=== PATIENT | female | born 1985 | race Caucasian/White ===

== ENCOUNTER → 2019-01-31 | Outpatient (CLI) | payer BC ==
--- NOTE | 2019-01-31 14:41 | US ---
EXAMINATION TYPE: US thyroid st tissue head/neck DATE OF EXAM: 01/31/2019 COMPARISON: 05/06/2015 CLINICAL HISTORY: E04.9 Enlarged thyroid. GLAND SIZE: Right Lobe: 7.0 x 1.7 x 2.2 cm Overall Parenchyma: homogenous Left Lobe: 6.1 x 1.3 x 1.9 cm Overall Parenchyma: homogeneous Isthmus Thickness: 0.4 cm NODULES RIGHT: # of nodules measured on right: 0 LEFT: # of nodules measured on left: 0 ISTHMUS: # of nodules measured in the isthmus: 0 Bilateral neck scanned, no evidence of lymphadenopathy. Enlarged thyroid. IMPRESSION: There is redemonstration of thyromegaly however the previously seen 4 mm right thyroid no dule is not redemonstrated.
== END | disposition home or self-care (01) ==
LOC: RADUSWWP 14:12
PROVIDERS: ATTEND Obstetrics & Gynecology
DX: E01.0 Iodine-deficiency related diffuse (endemic) goiter (principal)
CPT/HCPCS: 76536

== ENCOUNTER 2019-07-10 13:34 | Outpatient (CLI) | payer BC ==
[2019-07-10] MEDS ORDERED: BETAMET ACET-BETAMETH SOD PHOS 6 MG/ML VIAL IM SCH (14:00)
[2019-07-10 14:11] LABS: Basophils # (A) 0.1 k/uL (0-0.2); Basophils % (A) 1 %; Eosinophils # (A) 0.1 k/uL (0-0.7); Eosinophils % (A) 1 %; HCT 30.9 % (34.0-46.0); HGB 9.8 gm/dL (11.4-16.0); Lymphocytes # (A) 1.5 k/uL (1.0-4.8); Lymphocytes % (A) 13 %; MCH 28.3 pg (25.0-35.0); MCHC 31.9 g/dL (31.0-37.0); MCV 88.8 fL (80.0-100.0); Mean Platelet Volume 7.2; Monocytes # (A) 0.4 k/uL (0-1.0); Monocytes % (A) 4 %; Neutrophils # (A) 9.1 k/uL (1.3-7.7); Neutrophils % (A) 80 %; Platelet Count 323 k/uL (150-450); RBC 3.48 m/uL (3.80-5.40); WBC 11.4 k/uL (3.8-10.6)
[2019-07-10 14:23] LABS: Uric Acid 4.2 mg/dL (3.7-7.4)
[2019-07-10] MEDS ORDERED: LABETALOL 200 MG TAB PO STA (14:26)
[2019-07-10 14:27] LABS: Appearance,Urine Turbid (Clear); Bacteria,Urine Occasional /hpf; Bilirubin,Urine Negative (Negative); Blood,Urine Small (Negative); Color,Urine Yellow; Glucose,Urine (UA) Negative (Negative); Ketones,Urine Negative (Negative); Leukocyte Esterase,Urine Large (Negative); Nitrite,Urine Negative (Negative); PH, Urine 6.5 (5.0-8.0); Protein,Urine Trace (Negative); RBC,Urine 4 /hpf (0-5); Specific Gravity,Urine 1.016 (1.001-1.035); Squamous Epithelial Cell,Urine 53 /hpf (0-4); Urobilinogen,Urine <2.0 mg/dL (<2.0); WBC,Urine 63 /hpf (0-5)
[2019-07-10 14:40] VITALS: BP 165/98; PULSE 89; RESP 16; TEMP 98
--- NOTE | 2019-08-06 13:02 | P.MSEPDOC ---
Presenting Problems - Arrival Data Date of Arrival on Unit: 07/10/19 Time of Arrival on Unit: 13:30 Mode of Transport: Ambulatory - Complaint OB-Reason for Admission/Chief Complaint: PIH Medical History - Information : 2 Para: 1 Term: 1 : 0 Abortions: Spontaneous or Elective: 0 Number of Living Children: 1 - Gestational Age Gestational Age by JANICE (wks/days): 34 Weeks and 4 Days - History Complications: Prior Review of Systems - Review of Systems Constitutional: No problems Breast: No problems ENT: No problems Cardiovascular: No problems Respiratory: No problems Gastrointestinal: No problems Genitourinary: No problems Musculoskeletal: No problems Neurological: No problems Skin: No problems Vital Signs - Temperature Temperature: 98.0 F Temperature Source: Oral - Pulse Right Brachial Pulse Rate: 89 Pulse Assessment Method: Automatic Cuff - Respirations Respiratory Rate: 16 Oxygen Delivery Method: Room Air - Blood Pressure Right Arm Blood Pressure: 165/98 Blood Pressure Mean: 120 Blood Pressure Source: Automatic Cuff Medical Screen Scoring (Pre) - Cervical Exam Dilation: 0 cm = 0 Effacement: Exam Deferred Membranes: Intact - Uterine Contractions Frequency: N/A Duration: N/A Intensity: N/A - Maternal Vital Signs Maternal Temperature: N/A Maternal Blood Pressure: N/A Signs of Preeclampsia: N/A Maternal Respirations: N/A - Maternal Trauma Maternal Trauma: N/A - Assessment - Baby A Baseline FHR: 135 Heart Rate - NICHD Category: Category I (Normal) = 0 NST: Reactive Position: N/A Station: N/A - Total Score - Baby A Total Score - Baby A: 0 - Total Score - Baby B Total Score - Baby B: 0 - Total Score - Baby C Total Score - Baby C: 0 - Level of Risk - Baby A Level of Risk - Baby A: Low (0-5) - Level of Risk - Baby B Level of Risk - Baby B: Low (0-5) - Level of Risk - Baby C Level of Risk - Baby C: Low (0-5) Physician Notification (Pre) - Physician Notified Physician Notified Date: 07/10/19 Physician Notified Time: 14:25 New Order Received: Yes - Notification Comment Comment: to give B/P medication Medical Screen Scoring (Post) - Assessment - Baby A Heart Rate: 130 Heart Rate - NICHD Category: Category I (Normal) = 0 NST: Reactive Position: N/A - Total Score Total Score - Baby A: 0 - Post Treatment Level of Risk Post Treatment Level of Risk - Baby A: Low (0-5) Physician Notification (Post) - Physician Notified Physician Notified Date: 07/10/19 Physician Notified Time: 15:51 Spoke With: Dr. Juarez New Order Received: Yes - Notification Comment Comment: pt to start 24 hr for protein and to return to lab tomorrow. pt to f/u in office on Monday to have blood pressure rechecked. pt to go home and rest and off work this week and pt to take labetol 200mg bid as prescribed. Disposition - Disposition OB Disposition: Physician follow up in office, Discharge to home Discharge Date: 07/10/19 Discharge Time: 16:20 I agree with the RN Medical Screening Exam: Yes Risk & Benefit of care provided described in d/c instruction: Yes Diagnosis: RELATED CONDITIONS, UNSPECIFIED, THIRD TRIMESTER
== END 2019-07-10 16:20 | disposition home or self-care (01) ==
LOC: FBPOP 13:34
PROVIDERS: ATTEND Obstetrics & Gynecology
DX: O26.93 Pregnancy related conditions, unspecified, third trimester (principal); Z3A.34 34 weeks gestation of pregnancy
CPT/HCPCS: 59025; 96372; 82570; 84156; 84450; 84460; 84550; 85025; 81001; J0702; 99215

== ENCOUNTER 2019-07-11 16:30 | Outpatient (CLI) | payer BC ==
[2019-07-11] MEDS ORDERED: BETAMET ACET-BETAMETH SOD PHOS 6 MG/ML VIAL IM SCH (17:00)
[2019-07-11 18:22] LABS: Total Volume 24 Hour,Urine 2900 mls (800-1800)
[2019-07-11 18:29] LABS: Total Protein 24 Hour,Urine 319 mg/24hr (42.0-225.0)
[2019-07-11 19:00] VITALS: BP 155/88; PULSE 103; RESP 16; TEMP 97.7
--- NOTE | 2019-07-30 11:50 | P.MSEPDOC ---
Presenting Problems - Arrival Data Date of Arrival on Unit: 07/11/19 Time of Arrival on Unit: 16:30 Mode of Transport: Ambulatory - Complaint OB-Reason for Admission/Chief Complaint: PIH Comment: bp and 24 hour results Medical History - Information : 2 Para: 1 Term: 1 : 0 Abortions: Spontaneous or Elective: 0 Number of Living Children: 1 - Gestational Age Gestational Age by JANICE (wks/days): 34 Weeks and 5 Days Review of Systems - Review of Systems Constitutional: No problems Breast: No problems ENT: No problems Cardiovascular: No problems Respiratory: No problems Gastrointestinal: No problems Genitourinary: No problems Musculoskeletal: No problems Neurological: No problems Skin: No problems Vital Signs - Temperature Temperature: 97.7 F Temperature Source: Temporal Artery Scan - Pulse Right Sitting Pulse Rate: 103 Pulse Assessment Method: Automatic Cuff - Respirations Respiratory Rate: 16 Oxygen Delivery Method: Room Air - Blood Pressure Right Arm Blood Pressure: 155/88 Blood Pressure Mean: 110 Blood Pressure Source: Automatic Cuff Medical Screen Scoring (Pre) - Cervical Exam Dilation: Exam Deferred Effacement: Exam Deferred Membranes: Intact - Uterine Contractions Frequency: N/A - Maternal Vital Signs Maternal Temperature: N/A Maternal Blood Pressure: Systolic >139 = 2 Signs of Preeclampsia: N/A Maternal Respirations: N/A - Maternal Trauma Maternal Trauma: N/A - Assessment - Baby A Baseline FHR: 135 Heart Rate - NICHD Category: Category I (Normal) = 0 NST: Reactive Position: N/A Station: N/A - Total Score - Baby A Total Score - Baby A: 2 - Total Score - Baby B Total Score - Baby B: 2 - Total Score - Baby C Total Score - Baby C: 2 - Level of Risk - Baby A Level of Risk - Baby A: Low (0-5) - Level of Risk - Baby B Level of Risk - Baby B: Low (0-5) - Level of Risk - Baby C Level of Risk - Baby C: Low (0-5) Physician Notification (Pre) - Physician Notified Physician Notified Date: 07/11/19 Physician Notified Time: 18:35 New Order Received: Yes (d/c home) Disposition - Disposition OB Disposition: Discharge to home Discharge Date: 07/11/19 Discharge Time: 18:35 I agree with the RN Medical Screening Exam: Yes Risk & Benefit of care provided described in d/c instruction: Yes Diagnosis: induced hypertensio
== END 2019-07-11 18:35 | disposition home or self-care (01) ==
LOC: FBPOP 16:30
PROVIDERS: ATTEND Obstetrics & Gynecology
DX: O13.3 Gestational [pregnancy-induced] hypertension without significant proteinuria, third trimester (principal); Z3A.34 34 weeks gestation of pregnancy
CPT/HCPCS: 59025; 99215; 96372; 81050; 84156; J0702

== ENCOUNTER → 2019-07-11 | Outpatient (CLI) | payer BC ==
[2019-07-11 17:12] LABS: Total Volume 24 Hour,Urine 2900 mls (800-1800)
[2019-07-11 17:30] LABS: Creatinine 24 Hour,Urine 1438.4 mg/24hr (800.0-1800.0)
== END | disposition home or self-care (01) ==
LOC: LABWHC1 16:08
PROVIDERS: ATTEND Obstetrics & Gynecology
DX: Z53.9 Procedure and treatment not carried out, unspecified reason (principal)
CPT/HCPCS: 36415; 81050; 82575; 84156

== ENCOUNTER 2019-07-30 07:58 | Inpatient (IN) | payer BC ==
--- NOTE | 2019-07-30 08:19 | P.HPOB ---
History of Present Illness H&P Date: 07/30/19 Chief Complaint: Gestational hypertension This is a 34 year old 2 para 1001 woman with an estimated due date of 08/17/2019 based on LMP consistent with early ultrasound. She is admitted at 37 weeks gestation for repeat low transverse section. Indication for delivery is labile gestational hypertension. She had significant on hypertensive episode at approximately 34 weeks' gestation. She had on evaluation for preeclampsia which showed a borderline elevated 24 urine protein at approximately 320 mg. The rest of her laboratory data was normal. She was started on labetalol 200 mg twice a day on and was taken off of work. Her blood pressures have ranged between the 130s to 150s over 70s to 90s for the most part. She has had some higher blood pressures and has required increasing her labetalol to 3 times a day on occasion. She has not had any signs or symptoms otherwise of preeclampsia. Due to her labile blood pressures and gestational age the decision was made to proceed to delivery. She has also requested bilateral tubal ligation to be done at the time of her surgery. Obstetric history: History of previous 37 week primary low transverse section due to of Restasis descent and dilatation, induced secondary to -induced hypertension. 8 lbs. 9 oz. female . Laboratory data: Blood type A positive, antibody screen negative, rubella immune, VDRL nonreactive, hepatitis B surface antigen negative, glucose toleranc e testing within normal limits, group B strep cultures negative Review of Systems All systems: negative Past Medical History Past Medical History: Hypertension, Pneumonia Additional Past Medical History / Comment(s): induced HTN. History of Any Multi-Drug Resistant Organisms: None Reported Past Surgical History: Adenoidectomy, Section, Tonsillectomy Additional Past Surgical History / Comment(s): C-S x1. Past Anesthesia/Blood Transfusion Reactions: No Reported Reaction, Motion Sickness Past Psychological History: No Psychological Hx Reported Smoking Status: Never smoker Past Alcohol Use History: None Reported Past Drug Use History: None Reported - Past Family History Father Family Medical History: Hypertension Sister(s) History Unknown: Yes Additional Family Medical History / Comment(s): sister was born with hole in her heart, had to have surgery to repair Medications and Allergies Home Medications Medication Instructions Recorded Confirmed Type Pnv,Calcium 72/Iron/Folic Acid 1 tab PO DAILY 11/01/15 07/26/19 History [ Plus Tablet] Labetalol [Trandate] 200 mg PO BID 07/11/19 07/26/19 History Allergies Allergy/AdvReac Type Severity Reaction Status Date / Time No Known Allergies Allergy Verified 07/26/19 15:54 Exam This is a pleasant, visibly gravid female. HEENT exam is unremarkable. Her breathing is unlabored. Her heart is a regular rate and rhythm. The abdomen is gravid with fundal height approximately 40 cm. She has no abdominal pain. The uterus is soft and nontender. She has 1+ bilateral lower extremity edema and 2+ deep tendon reflexes. Assessment and Plan (1) 37 or more weeks gestation of Current Visit: Yes Status: Acute Code(s): RBU1713 - SNOMED Code(s): 54021192 (2) induced hypertension Current Visit: No Status: Acute Code(s): O13.9 - GESTATIONAL HTN W/O SIGNIFICANT PROTEINURIA, UNSP TRIMESTER SNOMED Code(s): 50665683 (3) History of Current Visit: Yes Status: Acute Code(s): Z98.891 - HISTORY OF UTERINE SCAR FROM PREVIOUS SURGERY SNOMED Code(s): 817532595 (4) Family planning Current Visit: Yes Status: Acute Code(s): Z30.09 - ENCOUNTER FOR OT GENERAL CNSL AND ADVICE ON CONTRACEPTION SNOMED Code(s): 009971312 Plan: 34-year-old 2 para 1 at 37 weeks gestation admitted for repeat low transverse section secondary to labile elevated blood pressures and mildly elevated proteinuria. She has been counseled regarding the potential risks of delivery at 37 weeks with possible on admission of infant into the special care nursery. We also reviewed the risks and benefits of repeat low transverse section versus vaginal after . She declines a trial of labor. She also has discussed contraceptive options with me in his requested bilateral tubal ligation. Risks of the procedure have been reviewed in detail with the patient and include bleeding, transfusion, infection, damage to bowel, bladder, ureters and/or other structures, possible injury, DVT and or PE.
[2019-07-30] MEDS ORDERED: LACTATED RINGERS 1,000 ML IV ONE (08:20)
[2019-07-30] MEDS ORDERED: CITRIC ACID-SODIUM CITRATE 15 ML CUP PO ONE (08:20)
[2019-07-30 08:30] LABS: Basophils % (A) 0 %; Eosinophils # (A) 0.2 k/uL (0-0.7); Eosinophils % (A) 2 %; HCT 31.6 % (34.0-46.0); Lymphocytes # (A) 1.1 k/uL (1.0-4.8); Lymphocytes % (A) 12 %; MCH 27.8 pg (25.0-35.0); MCHC 31.7 g/dL (31.0-37.0); MCV 87.7 fL (80.0-100.0); Mean Platelet Volume 7.4; Monocytes # (A) 0.4 k/uL (0-1.0); Monocytes % (A) 4 %; Neutrophils # (A) 7.3 k/uL (1.3-7.7); Neutrophils % (A) 80 %; Platelet Count 288 k/uL (150-450); RDW 15.1 % (11.5-15.5); WBC 9.2 k/uL (3.8-10.6)
[2019-07-30] MEDS ORDERED: KETOROLAC 30 MG/ML 1 ML VIAL ONE (09:51)
[2019-07-30] MEDS ORDERED: ONDANSETRON 4 MG/2 ML VIAL ONE (09:51)
[2019-07-30] MEDS ORDERED: LABETALOL 5 MG/ML VIAL MDV ONE (09:51)
[2019-07-30] MEDS ORDERED: OXYTOCIN 10 UNIT/ML 1 ML VIAL ONE (09:51)
[2019-07-30] MEDS ORDERED: MORPHINE SULFATE (PF) 0.3 MG/0.3 ML SYR ONE (09:51)
[2019-07-30] MEDS ORDERED: CELLULOSE,OXIDIZED 1 EACH EACH MISCELLANE ONE (10:30)
[2019-07-30] MEDS ORDERED: METOCLOPRAMIDE 5 MG/ML 2 ML VIAL IVP PRN (10:55)
[2019-07-30] MEDS ORDERED: HYDROcodone/APAP 5-325MG 1 EACH TAB PO PRN (10:55)
[2019-07-30] MEDS ORDERED: NALOXONE 0.4 MG/ML 1 ML VIAL IV PRN (10:55)
[2019-07-30] MEDS ORDERED: ACETAMINOPHEN TAB 325 MG TAB PO PRN (10:55)
[2019-07-30] MEDS ORDERED: diphenhydrAMINE 50 MG CAP PO PRN (10:55)
[2019-07-30] MEDS ORDERED: diphenhydrAMINE 25 MG CAP PO PRN (10:55)
[2019-07-30] MEDS ORDERED: ZOLPIDEM 5 MG TAB PO PRN (10:55)
[2019-07-30] MEDS ORDERED: ONDANSETRON 4 MG/2 ML VIAL IVP PRN (10:55)
[2019-07-30] MEDS ORDERED: diphenhydrAMINE 50 MG/ML 1 ML VIAL IVP PRN ×2 (10:55)
--- NOTE | 2019-07-30 10:55 | P.OP ---
Date of Procedure: 07/30/19 Preoperative Diagnosis: Intrauterine at 37 weeks gestation -induced hypertension, labile but pressures History of previous low transverse section Postoperative Diagnosis: Same Procedure(s) Performed: Repeat low transverse section Anesthesia: spinal Surgeon: Dennise Juarez Unit Nurse #1: Jerel Boyer Estimated Blood Loss (ml): 700 IV fluids (ml): 1,000 Urine output (ml): 1,100 Pathology: none sent Condition: stable Disposition: PACU Indications for Procedure: Increasingly labile blood pressures near term. Operative Findings: Male infant in the vertex presentation with nuchal cord 2. Apgars of 9 at 1 minute and 9 at 5 minutes weighing 7 lbs. 2 oz., 3230 g. Intact three-vessel cord placenta. Scarring of the uterus to the anterior abdominal wall. Description of Procedure: After the patient was met preoperatively and all questions were answered, she was taken to the operating room where spinal anesthetic was administered without incident. She was then positioned, prepped and draped in the dorsal supine position with a leftward tilt. Mclean catheter was placed. After anesthetic was confirmed adequate, a low transverse skin incision was made following the pre- existing scar. This was carried down to the underlying fascia both sharply and with the electrocautery. The fascia was then incised in the midline and extended bilaterally with the Cedeno scissors. The superior aspect of the fascial incision was elevated and the underlying rectus muscles dissected off sharply and with the electrocautery. The inferior aspect of the fascial incision was also elevated and the underlying rectus muscles dissected off sharply. The muscles were adherent in the midline. These were bluntly and the peritoneum was tented up with hemostats. The peritoneum was entered sharply with the Metzenbaum scissors. The peritoneal incision was extended inferiorly and superiorly with good visualization of the bladder. The bladder blade was placed. The vesicouterine peritoneum was identified, tented up and entered sharply, the bladder flap was created both sharply and digitally. There were adhesions of the midsection of the uterus to the anterior abdominal wall. These were taken down with Bovie electrocautery. A low transverse uterine incision was then made sharply and carried down to the underlying amniotic membranes. Membranes were ruptured and clear fluid was noted. The uterine incision was extended bilaterally bluntly. The infant's head was delivered from the incision without difficulty. The nose and mouth were bulb suctioned. The rest of the infant was delivered onto the field without difficulty. And cut and the was taken to the warmer. An intact, three-vessel cord placenta was then manually removed and the uterus was exteriorized. The uterus was cleared of all clot and debris. The uterine incision was delineated with Lang clamps. The uterine incision was then closed in a running locked fashion with 0 Vicryl suture. An additional indicating layer with the same stitch was placed. Additional [id number] sutures were placed where necessary along the incision for hemostasis. The uterus was then returned to the abdomen and the gutters were cleared of all clot and debris. The uterine incision was reinspected and Bovie electrocautery was utilized were necessary for hemostasis. The fascial edges, peritoneal edges and rectus muscles were inspected and Bovie electrocautery utilized were necessary for hemostasis. The fascia was then closed in a running fashion with 0 Vicryl suture. The subcuticular tissue was copiously suction irrigated and Bovie electrocautery utilized were necessary for hemostasis. 3-0 Vicryl suture was utilized to reapproximate the subcuticular tissue. There was active bleeding noted from what appears to be an aberrant blood vessel vessel in the subcutaneous tissue. This bleeding was not controlled with Bovie electrocautery therefore figure of eights with 3-0 Vicryl suture x2 was placed for hemostasis. This is along the lateral lower left edge of the incision. The skin was then closed in a subcutaneous fashion with 4-0 Vicryl suture. All counts reported to me as correct by the operating room staff at the end of the procedure. The patient received antibiotics preoperatively and Pitocin following cord clamp. Mother and infant were both transported from the room in stable condition.
[2019-07-30] MEDS ORDERED: OXYTOCIN 20 UNITS/1000 ML NS 1,000 ML IV SCH (11:00)
[2019-07-30] MEDS: LACTATED RINGERS 1,000 ML IV SCH ×4 (12:01→20:50)
[2019-07-30] MEDS: LABETALOL 200 MG TAB PO SCH (16:26)
[2019-07-30] MEDS: KETOROLAC 30 MG/ML 1 ML VIAL IVP PRN (17:44)
[2019-07-30] MEDS: SENNOSIDES-DOCUSATE SODIUM 1 EACH TAB PO SCH (19:23)
[2019-07-31 07:32] LABS: Basophils # (A) 0.1 k/uL (0-0.2); Basophils % (A) 0 %; Eosinophils # (A) 0.1 k/uL (0-0.7); Eosinophils % (A) 1 %; HCT 27.3 % (34.0-46.0); HGB 9.3 gm/dL (11.4-16.0); Lymphocytes # (A) 1.4 k/uL (1.0-4.8); Lymphocytes % (A) 11 %; MCH 30.1 pg (25.0-35.0); MCHC 34.2 g/dL (31.0-37.0); MCV 88.1 fL (80.0-100.0); Mean Platelet Volume 7.6; Monocytes # (A) 1.3 k/uL (0-1.0); Monocytes % (A) 10 %; Neutrophils % (A) 77 %; Platelet Count 304 k/uL (150-450); RDW 15.1 % (11.5-15.5)
--- NOTE | 2019-07-31 07:57 | P.PNOBGPC ---
Subjective - Subjective Principal diagnosis: Postop day 1 Interval history: Feeling well. Had some nausea and vomiting yesterday that has now resolved. Has been able to spontaneously void without difficulty. Working on breast- feeding. No headaches, visual changes, upper abdominal pain or increase in lower extremity swelling. Patient reports: Reports appetite normal, Reports voiding normally, Reports pain well controlled, Reports ambulating normally, Denies dizzy ambulation, Denies nauseated [place]: doing well Objective - Vital Signs Latest vital signs: Vital Signs Temp Pulse Resp BP Pulse Ox 07/31/19 04:00 98.6 F 95 16 153/80 07/31/19 00:00 98.2 F 82 16 145/86 07/30/19 20:00 97.7 F 75 16 144/93 95 07/30/19 16:00 97.9 F 73 16 148/96 97 07/30/19 12:53 96.5 F L 71 16 154/88 07/30/19 12:23 71 16 142/95 98 07/30/19 11:53 75 16 146/85 95 07/30/19 11:38 68 16 140/73 97 07/30/19 11:23 71 16 142/97 98 07/30/19 11:08 73 16 136/92 100 07/30/19 10:53 96.4 F L 71 16 134/86 98 07/30/19 08:37 97.3 F L 90 16 163/94 99 Intake and Output 07/30/19 07/31/19 07/31/19 22:59 06:59 14:59 Intake Total 1000 Output Total 300 200 Balance 700 -200 Intake: Intake, IV Titration 1000 Amount Oxytocin 20 Units/1000 ml 1000 Ns 1,000 ml @ Per Protocol IV .Q0M [facility] Rx#: [id number] Output: Urine 300 200 Uretheral (Mclean) 300 - Exam Extremities: Present: edema Abdomen: Present: normal appearance, soft, tenderness Incision: Present: normal, dry, intact. Absent: erythematous Uterus: Present: normal, firm - Labs Labs: Abnormal Lab Results - Last 24 Hours (Table) 07/30/19 07/31/19 Range/Units 08:20 06:35 WBC 13.0 H (3.8-10.6) k/uL RBC 3.60 L 3.10 L (3.80-5.40) m/uL Hgb 10.0 L 9.3 L (11.4-16.0) gm/dL Hct 31.6 L 27.3 L (34.0-46.0) % Neutrophils # 10.0 H (1.3-7.7) k/uL Monocytes # 1.3 H (0-1.0) k/uL Assessment and Plan (1) 37 or more weeks gestation of Current Visit: Yes Status: Acute Code(s): TMZ7439 - SNOMED Code(s): 99289698 (2) induced hypertension Narrative/Plan: Blood pressures 140s to 150s over 80s and 90s. She is asymptomatic. Will resume labetalol 200 mg twice a day today. Current Visit: No Status: Acute Code(s): O13.9 - GESTATIONAL HTN W/O SIGNIFICANT PROTEINURIA, UNSP TRIMESTER SNOMED Code(s): 59676380 (3) History of Current Visit: Yes Status: Acute Code(s): Z98.891 - HISTORY OF UTERINE SCAR FROM PREVIOUS SURGERY SNOMED Code(s): 790818362 (4) Postoperative anemia Narrative/Plan: Patient was mildly anemic from third trimester of , admission hemoglobin 10.0, postop day 1 hemoglobin 9.3. She is hemodynamically stable and is asymptomatic. Current Visit: No Status: Acute Code(s): D64.9 - ANEMIA, UNSPECIFIED SNOMED Code(s): 324700801
[2019-07-31] MEDS: SENNOSIDES-DOCUSATE SODIUM 1 EACH TAB PO SCH ×2 (08:37→19:52)
[2019-07-31] MEDS: LABETALOL 200 MG TAB PO SCH ×2 (08:38→21:11)
[2019-07-31] MEDS: KETOROLAC 30 MG/ML 1 ML VIAL IVP PRN (13:46)
[2019-08-01] MEDS: IBUPROFEN 600 MG TAB PO PRN ×2 (04:12→09:12)
[2019-08-01 08:30] VITALS: RESP 18; TEMP 98
--- NOTE | 2019-08-01 08:47 | P.DS ---
Providers Date of admission: 07/30/19 07:58 Expected date of discharge: 08/01/19 Attending physician: Dennise Juarez Primary care physician: Stated None - Discharge Diagnosis(es) (1) 37 or more weeks gestation of Current Visit: Yes Status: Acute (2) induced hypertension Current Visit: No Status: Acute (3) History of Current Visit: Yes Status: Acute (4) Postoperative anemia Current Visit: No Status: Acute Hospital Course: This is a 34-year-old 2 now para 2 woman who is admitted at 37+ weeks gestation for repeat low transverse section secondary to labile -induced hypertension. Please see the history and physical for details. Following admission she went to the operating room where she underwent an uncomplicated repeat low transverse section done under spinal anesthetic. Findings at time of surgery were remarkable for a liveborn male infant with a nuchal cord 2 with Apgars of 9 at 1 minute and 9 at 5 minutes weighing 7 lbs. 2 oz. The patient's postoperative course was unremarkable. She did have blood pressures ranging from the 140s to 150s over 80s and 90s. She w as restarted on her labetalol 200 mg twice a day and by postoperative day #2 her blood pressures were consistently 140s over 80s. She denied any symptoms of preeclampsia including headaches, visual changes, severe upper abdominal pain, increase in swelling or shortness of breath. On postoperative day #2 her abdomen is soft and nontender. Her incision is intact and well- healing with no evidence of erythema. She has 1+ bilateral lower extremity edema. She is ambulating and voiding without difficulty. She is therefore discharged home with routine instructions for postoperative care and follow-up. She's went to continue monitoring her home blood pressures and has been educated in parameters to notify the office with concerns. Procedures: Repeat low transverse section Patient Condition at Discharge: Good Plan - Discharge Summary Discharge Rx Participant: No New Discharge Prescriptions: No Action Pnv,Calcium 72/Iron/Folic Acid [ Plus Tablet] 1 tab PO DAILY Labetalol [Trandate] 200 mg PO BID Discharge Medication List Pnv,Calcium 72/Iron/Folic Acid [ Plus Tablet] 1 tab PO DAILY 11/01/15 [History] Labetalol [Trandate] 200 mg PO BID 07/11/19 [History] Follow up Appointment(s)/Referral(s): Dennise Juarez MD [STAFF PHYSICIAN] - 2 Weeks Activity/Diet/Wound Care/Special Instructions: Follow-up in 2 weeks after surgery in the office. May use [id number] ibuprofen and/or Tylenol extra strength as needed for pain. Continue labetalol 200 mg twice a day. Monitor home blood pressures. Hold labetalol for systolic blood pressures less than 110. Notify the office with systolic blood pressures greater than 180 or diastolic blood pressures greater than 100. Call the office with any concerning signs or symptoms including fever greater than 101, severe abdominal pain, heavy vaginal bleeding, signs of wound infection, increased swelling or redness of the lower extremities, signs of depression, severe headache or visual changes.. No driving for 2 weeks after surgery. No heavy lifting or vigorous activity until reevaluated in the office. No intercourse for 6 weeks after delivery. Discharge Disposition: HOME SELF-CARE
[2019-08-01] MEDS: LABETALOL 200 MG TAB PO SCH (08:59)
[2019-08-01] MEDS: SENNOSIDES-DOCUSATE SODIUM 1 EACH TAB PO SCH (09:09)
[2019-08-01 11:03] VITALS: BP 131/83; PULSE 80
--- NOTE | 2019-08-01 13:53 | P.PN ---
Progress Note - Text 07/31 644am D4-year-old female status post with a spinal anesthetic and Duramorph plus patient seen and evaluated for postop pain control, patient has a VAS of 0, had complains of nausea vomiting on the day of surgery. She is feeling much better today
== END 2019-08-01 12:20 | disposition home or self-care (01) | DRG 788 ==
LOC: 4FBP 07:58
PROVIDERS: ADMIT Obstetrics & Gynecology; ATTEND Obstetrics & Gynecology
PROC: 10D00Z1 Extraction of Products of Conception, Low, Open Approach (ICD-10-PCS; principal; 2019-07-30 10:00)
DX: O13.4 Gestational [pregnancy-induced] hypertension without significant proteinuria, complicating childbirth (principal); O34.211 Maternal care for low transverse scar from previous cesarean delivery; O69.81X0 Labor and delivery complicated by cord around neck, without compression, not applicable or unspecified; O99.02 Anemia complicating childbirth; D64.9 Anemia, unspecified; Z37.0 Single live birth; Z3A.37 37 weeks gestation of pregnancy; Z87.01 Personal history of pneumonia (recurrent); Z82.49 Family history of ischemic heart disease and other diseases of the circulatory system
CPT/HCPCS: 85025; 86850; 86900; 86901

== ENCOUNTER → 2020-04-22 | Outpatient (CLI) | payer BC ==
--- NOTE | 2020-04-22 16:44 | US ---
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 Thyroid echotexture is homogenous and symmetric IMPRESSION: Thyroid measurements similar to prior, no evident thyroid nodule
== END | disposition home or self-care (01) ==
LOC: RADUSWWP 16:05
PROVIDERS: ATTEND Family Medicine
DX: E04.9 Nontoxic goiter, unspecified (principal)
CPT/HCPCS: 76536

== ENCOUNTER → 2021-12-22 | Outpatient (CLI) | payer BC ==
--- NOTE | 2021-12-22 09:26 | MM ---
Reason for Exam: Clinical finding. Baseline mammogram. Indicated Problems: Pain of the left side (Global). Patient History: Menarche at age 9. First Full-Term at age 30. Late child-bearing (after 30). Currently using Hormonal Contraceptives, beginning at age 34 for 2 years. Risk Values: Vira 5 year model risk: 0.6%. NCI Lifetime model risk: 15.0%. Prior Study Comparison: Patient's first Mammogram. Tissue Density: The breast tissue is extremely dense which could obscure a lesion on mammography. Findings: Mammogram No suspicious focal mass or worrisome cluster of microcalcification in either breast. Technique: Method: Whole Breast Handheld. Findings: The whole breast of the left breast, the axilla of the left breast and the retroareolar of the left breast were scanned. Overall Assessment: Probably benign, BI-RAD 3 Assessment: MG diagnostic mammo w CAD KAILEY - Bilateral: Probably benign, BI-RAD 3 - Left. US breast LT - Left: Probably benign, BI-RAD 3. Management: Diagnostic Breast Ultrasound of the left breast in 6 months. Manage patient's symptoms clinically. Results were given to the patient verbally at the time of exam. Electronically signed and approved by: Ac Ann M.D.
== END | disposition home or self-care (01) ==
LOC: RADMAMWWP 08:13
PROVIDERS: ATTEND Obstetrics & Gynecology
DX: N64.4 Mastodynia (principal)
CPT/HCPCS: 77066

== ENCOUNTER → 2022-06-20 | Outpatient (CLI) | payer BC ==
--- NOTE | 2022-06-20 10:55 | USB ---
Reason for Exam: Follow-up at short interval from prior study. Patient History: Menarche at age 9. First Full-Term at age 30. Late child-bearing (after 29). Currently using Hormonal Contraceptives, beginning at age 34 for 2 years. Risk Values: Vira 5 year model risk: 0.7%. NCI Lifetime model risk: 14.9%. Technique: Method: Whole Breast Handheld. Prior Study Comparison: 12/22/2021 Bilateral MG diagnostic mammo w CAD [facility], [facility]. Findings: The whole breast of the left breast, the axilla of the left breast and the retroareolar of the left breast were scanned. A complete US of all four quadrants of the breast, axilla, and retro-areolar region were reviewed. There is dense breast tissue throughout. Redemonstrated at the 1:00 position, far peripherally near the axilla, there is an elongated complex cystic region measuring 3.9 x 0.4 x 1.3 cm. This is in comparison to 3.9 x 0.7 x 0.9 cm. Not significant change. No other solid or cystic lesion is seen. Suspect focal fibrocystic change, likely mammographic correlate. Additional short interval follow-up can be performed. Overall Assessment: Probably benign, BI-RAD 3 Management: Diagnostic Mammogram of the left breast in 6 months. Diagnostic Breast Ultrasound of the left breast in 6 months. 1. Patient should continue monthly self breast exams. 2. A clinical breast exam by your physician is recommended on an annual basis. 3. This exam should not preclude additional follow-up of suspicious palpable abnormalities. Results were given to the patient verbally at the time of exam. Electronically signed and approved by: Ashley Vela M.D. Radiologist
== END | disposition home or self-care (01) ==
LOC: RADUSWWP 10:16
PROVIDERS: ATTEND Obstetrics & Gynecology
DX: R92.8 Other abnormal and inconclusive findings on diagnostic imaging of breast (principal); N64.4 Mastodynia

== ENCOUNTER → 2024-12-09 | Outpatient (CLI) | payer BC ==
--- NOTE | 2024-12-09 14:37 | MM ---
Reason for Exam: Screening (asymptomatic). Last mammogram was performed 2 year(s) and 11 month(s) ago. Patient History: Menarche at age 9. First Full-Term at age 30. Late child-bearing (after 29). Currently using Hormonal Contraceptives, beginning at age 34 for 2 years. Last menstrual period: Risk Values: Vira 5 year model risk: 0.8%. NCI Lifetime model risk: 14.8%. Prior Study Comparison: 12/22/2021 Bilateral MG diagnostic mammo w CAD [facility], [facility]. 01/09/2023 Bilateral MG 3D diag mammo wo cad [facility], [facility]. Tissue Density: The breasts are extremely dense, which lowers the sensitivity of mammography. Findings: Analyzed By CAD. Right breast: There is no suspicious group of microcalcifications or new suspicious mass. Left breast: There is no suspicious group of microcalcifications or new suspicious mass. Overall Assessment: Negative, BI-RAD 1 Management: Screening Mammogram of both breasts in [address] [facility] will attempt to contact patient to return for supplemental views and ultrasound if indicated. Patient should continue monthly self-breast exams. A clinical breast exam by your physician is recommended on an annual basis. This exam should not preclude additional follow-up of suspicious palpable abnormalities. Note on Vira scores and lifetime risk: 1. A Vira score greater than 3% is considered moderate risk. If this is the case, consider specialist referral to assess eligibility for a risk reducing agent. 2. If overall lifetime risk for the development of breast cancer is 20% or higher, the patient may qualify for future screening with alternating mammogram and breast MRI. [facility], , 12/09/2024 2:34 PM. Electronically signed and approved by: Eduardo Tsai DO
== END | disposition home or self-care (01) ==
LOC: RADMAMWWP 13:33
PROVIDERS: ATTEND Family Medicine
DX: Z12.31 Encounter for screening mammogram for malignant neoplasm of breast (principal); R92.343 Mammographic extreme density, bilateral breasts; Z92.0 Personal history of contraception
CPT/HCPCS: 77063; 77067